=== PATIENT | male | born 1965 | race Caucasian/White ===

== ENCOUNTER 2020-05-04 16:34 | Emergency (ER) | payer SELFPAY ==
[2020-05-04] MEDS ORDERED: LIDOCAINE 1% INJ-PF (10 MG/ML) 30 ML SDV INJ ONE (16:46)
--- NOTE | 2020-05-04 16:47 | ER Document Report ---
ED Hand/Wrist Injury <MICHAELLE MONTOYA - Last Filed: 05/04/20 18:14> - General Mode of Arrival: Ambulatory Information source: Patient - HPI Injury to: Index finger Onset: Just prior to arrival Where: Indoors, Other - Daughter's house Timing: Still present Quality of pain: No pain, Sharp Severity: None Pain Level: Denies Context: Laceration <RONNY LOVING - Last Filed: 05/04/20 18:21> - General Chief Complaint: Finger Injury Stated Complaint: FINGER LACERATION Time Seen by Provider: 05/04/20 16:41 Primary Care Provider: MAGI VILLASEÑOR PA-C [COMMUNITY BASED STAFF] - 05/07/20 Notes: 55-year-old male presented to ED for laceration to the left index finger. He states he was trying to cut a slip tie with a knife when he sliced his hand. He is alert oriented respirations regular nonlabored speaking in full sentences. His blood pressure is elevated. He states he is on losartan and is supposed to start metoprolol and he has a prescription in his truck he just needs to get it filled and start taking it. He knows that his blood pressure is elevated. He got a tetanus immunization 8 months ago when he stepped on a nail. Denies allergies to any antibiotics. We will clean his finger sutured and send him home on some Keflex. Constitutional: Negative for fever. HENT: Negative for sore throat. Eyes: Negative for visual changes. Cardiovascular: Negative for chest pain. Respiratory: Negative for shortness of breath. Gastrointestinal: Negative for abdominal pain, vomiting or diarrhea. Genitourinary: Negative for dysuria. Musculoskeletal: Negative for back pain. Skin: Laceration to the left index finger Neurological: Negative for headaches, weakness or numbness. 10 point ROS negative except as marked above and in HPI. PHYSICAL EXAMINATION: GENERAL: Well-appearing, well-nourished and in no acute distress. HEAD: Atraumatic, normocephalic. EYES: Pupils equal round extraocular movements intact, conjunctiva are normal. ENT: Nares patent NECK: Normal range of motion LUNGS: No respiratory distress Musculoskeletal: Normal range of motion NEUROLOGICAL: Normal speech, normal gait. PSYCH: Normal mood, normal affect. SKIN: 2 cm laceration to the left index finger (RONNY LOVING) - Related Data Allergies/Adverse Reactions: No Known Allergies Allergy (Unverified 05/04/20 17:04) Past Medical History - General Information source: Patient - Social History Smoking Status: Never Smoker Frequency of alcohol use: Rare Drug Abuse: None Lives with: Family Family History: Reviewed & Not Pertinent - Past Medical History Cardiac Medical History: Reports: Hx Hypertension Pulmonary Medical History: Reports: None EENT Medical History: Reports: None Neurological Medical History: Reports: None Endocrine Medical History: Reports: None Renal/ Medical History: Reports: None Malignancy Medical History: Reports None GI Medical History: Reports: None Musculoskeletal Medical History: Reports None Skin Medical History: Reports None Psychiatric Medical History: Reports: None Traumatic Medical History: Reports: None Infectious Medical History: Reports: None Past Surgical History: Reports: Other - Immunizations Immunizations up to date: Yes Hx Diphtheria, Pertussis, Tetanus Vaccination: Yes - 2019 <RONNY LOVING - Last Filed: 05/04/20 18:21> Physical Exam - Vital signs Vitals: Temp Pulse Resp BP Pulse Ox 98.8 F 83 16 151/112 H 97 05/04/20 16:42 05/04/20 16:42 05/04/20 16:42 05/04/20 16:42 05/04/20 16:42 Course - Vital Signs Vital signs: Temp Pulse Resp BP Pulse Ox 98.8 F 83 16 151/112 H 97 05/04/20 16:42 05/04/20 16:42 05/04/20 16:42 05/04/20 16:42 05/04/20 16:42 Procedures - Immobilization Left Finger 2nd digit Time completed: 17:45 - Laceration/Wound Repair Left Finger 2nd digit Wound length (cm): 2 Wound's Depth, Shape: Superficial Laceration pre-procedure: Sterile PPE donned, Chloraprep applied, Sterile drapes applied Anesthetic type: 1% Lidocaine Volume Anesthetic (mLs): 4 Wound explored: Clean, No foreign body removed Irrigated w/ Saline (mLs): 500 Wound Repaired With: Sutures Suture Size/Type: 4:0 Number of Sutures: 5 Layer Closure?: No Post-procedure NV exam normal: Yes Complications: No <MICHAELLE MONTOYA - Last Filed: 05/04/20 18:14> - Immobilization Left Finger 2nd digit Time completed: 18:09 Pre-Proc Neuro Vasc Exam: Normal Immobilizer type: Finger protection Performed by: Provider assisted Post-Proc Neuro Vasc Exam: Normal Alignment checked and good: Yes <RONNY LOVING - Last Filed: 05/04/20 18:21> Discharge <MICHAELLE MONTOYA - Last Filed: 05/04/20 18:14> <RONNY LOVING - Last Filed: 05/04/20 18:21> - Discharge Clinical Impression: Laceration of left index finger Qualifiers: Encounter type: initial encounter Damage to nail status: without damage Foreign body presence: without foreign body Qualified Code(s): S61.211A - Laceration without foreign body of left index finger without damage to nail, initial encounter Condition: Stable Disposition: HOME, SELF-CARE Additional Instructions: Hand Laceration A laceration on the hand can present special problems. It may be difficult to keep the wound dry. Motion of the fingers can disturb the healing edges. Your work may involve exposure to damaging chemicals or water. Keep the wound clean and dry. If you can't keep the cut dry, undisturbed, and free of chemical exposure, please discuss this with the doctor. If any water or chemical gets onto the dressing, remove it, blot the wound dry, then apply a fresh bandage. Dressings should be changed every day. If you feel the stitches pulling as you move the hand, a splint or other form of protection is needed. If any signs of infection occur (swelling, redness, increasing tenderness, red streaks, tender lumps in the armpit, or fever), see the doctor immediately. SOAP CLEANSING: Gently wash the wound daily using a mild soap (like Ivory, Phisoderm, Neutrogena). Use warm water, rubbing gently until all debris, ooze, and crusting have been washed from the wound. Allow to dry briefly (about 10 minutes) after cleaning. Repeat this cleansing at least three times a day for the first two days and then once or twice a day. ANTIBIOTIC OINTMENT PROTECTION: Your wounds are such that dressing them is not practical or optional. After cleansing, you should apply a thin coating of antibiotic ointment (Bacitracin, not Neosporin) to the wounds at least three times daily. This lessens infection risk, and may decrease the amount of scarring. Use a q-tip or dull butter knife, not your finger, to apply this ointment. Any debris or ooze which builds up in the ointment should be gently rubbed off with a sterile gauze pad. Harder crusting may need to be gently scrubbed off with a clean wash cloth with soap and warm water, perhaps applying a warm, wet wash cloth to the wound for ten minutes first. Development of redness, severe itching, or blistering may mean allergy to the ointment. See the doctor. PROPHYLACTIC ANTIBIOTIC: The antibiotics which have been prescribed are designed to decrease the risk of infection. Only certain types of wounds benefit from this -- the typical cut, scrape, or burn DOES NOT require antibiotics. Of course, infection can still occur despite the use of prophylactic antibiotics. Your wound will heal with less chance of an infectious complication if you take the medication as directed. The most important dose is the FIRST dose, so don't delay filling the prescription! Let was applied to your finger to protect the laceration. Please clean your hand as ordered and reapply the splint every day for at least the first 4 to 5 days. FOLLOW-UP CARE: Please return in ___3__ days for an infection check and dressing change. Your sutures should be removed in __10___ days. To facilitate a timely removal of your sutures, you may return to the Emergency Department at [facility]. You do not need to call for an appointment, but the best time to come in for suture removal is early in the morning. If you have been referred to another physician for follow-up care, call that physicians office for an appointment as you were instructed. If you experience a significant change in your laceration, or if you are concerned there may be an infection (swelling, redness, drainage, increasing tenderness, red streaks, tender lumps in the armpit or groin above the laceration, or fever), return to the Emergency Department immediately re-evaluation. Prescriptions: Cephalexin Monohydrate [Keflex 500 mg Capsule] 500 mg PO Q6H 5 Days #20 capsule Forms: Elevated Blood Pressure Referrals: MAGI VILLASEÑOR PA-C [COMMUNITY BASED STAFF] - 05/07/20
[2020-05-04] MEDS ORDERED: CEPHALEXIN 500 MG CAPSULE PO ONE (17:15)
[2020-05-04 18:29] VITALS: BP 150/109
== END 2020-05-04 18:21 | disposition home or self-care (01) ==
LOC: ER 16:34
DX: S61.211A Laceration without foreign body of left index finger without damage to nail, initial encounter (principal); W26.0XXA Contact with knife, initial encounter; Y93.89 Activity, other specified; Y92.009 Unspecified place in unspecified non-institutional (private) residence as the place of occurrence of the external cause; I10 Essential (primary) hypertension; Z79.899 Other long term (current) drug therapy
CPT/HCPCS: 99283; 12001; J3490